=== PATIENT | female | born 2000 | race Caucasian/White ===

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

== ENCOUNTER → 2024-02-25 | Outpatient (CLI) | payer OTHER ==
--- NOTE | 2024-02-26 20:05 | US ---
EXAMINATION TYPE: US pelvic complete DATE OF EXAM: 02/25/2024 COMPARISON: NONE CLINICAL INDICATION: Female, 23 years old with history of R10.2 PELVIC PAIN; TECHNIQUE: . Transabdominal grayscale sonographic images of the pelvis were acquired. Transvaginal sonographic im ages were medically necessary to better assess the following anatomy: uterus and ovaries Doppler imaging: Not performed. FINDINGS: Date of LMP: 02/16/2024 EXAM MEASUREMENTS: Uterus: 5.9 x 2.9 x 3.9 cm Endometrial Stripe: 0.5 cm Right Ovary: 2.5 x 2.2 x 3.7 cm Left Ovary: 2.9 x 1.8 x 1.4 cm 1. Uterus: anteverted 2. Endometrium: appears wnl 3. Right Ovary: multiple follicles 4. Left Ovary: multiple follicles 5. Bilateral Adnexa: wnl 6. Posterior cul-de-sac: wnl IMPRESSION: Bilateral ovarian follicles. Otherwise unremarkable study. [facility], , 02/26/2024 8:03 PM
== END | disposition home or self-care (01) ==
LOC: RADUSWWP 06:58
PROVIDERS: ATTEND Family Medicine
DX: R10.2 Pelvic and perineal pain (principal)
CPT/HCPCS: 76830; 76856